=== PATIENT | female | born 1960 | race Asian ===

== ENCOUNTER → 2018-02-04 | Outpatient (CLI) | payer OTHER | END | disposition home or self-care (01) | LOC: RAD 16:06 | PROVIDERS: ATTEND Registered Nurse | DX: G93.89 Other specified disorders of brain (principal); R90.82 White matter disease, unspecified; G93.6 Cerebral edema; I63.9 Cerebral infarction, unspecified | CPT/HCPCS: 70450 ==

== ENCOUNTER 2018-02-25 09:06 | Day surgery (SDC) | payer OTHER ==
[~2018-02-25] VITALS: Ht 149.9 cm; Wt 45.5 kg
[2018-02-25 09:28] VITALS: BP 160/108
[2018-02-25] MEDS ORDERED: LIDOCAINE/PF 1%, 30ML ONE (09:45)
== END 2018-02-25 10:40 | disposition home or self-care (01) ==
LOC: CACL 09:06
PROVIDERS: ATTEND Internal Medicine Cardiovascular Disease
DX: I63.9 Cerebral infarction, unspecified (principal); I10 Essential (primary) hypertension; E78.5 Hyperlipidemia, unspecified; F15.90 Other stimulant use, unspecified, uncomplicated; J45.909 Unspecified asthma, uncomplicated; Z79.82 Long term (current) use of aspirin; Z79.899 Other long term (current) drug therapy; Z88.1 Allergy status to other antibiotic agents; Z88.0 Allergy status to penicillin; Z88.8 Allergy status to other drugs, medicaments and biological substances; Z90.710 Acquired absence of both cervix and uterus; Z90.49 Acquired absence of other specified parts of digestive tract; Z98.890 Other specified postprocedural states
CPT/HCPCS: 33282; C1764; J3490

== ENCOUNTER 2019-05-12 10:27 | Day surgery (SDC) | payer OTHER ==
[2019-05-12] MEDS ORDERED: SODIUM CHLORIDE 0.9% 1,000 ML IV SCH (11:47)
[2019-05-12] MEDS ORDERED: LIDOCAINE 2%, 20ML ONE (11:57)
== END 2019-05-12 13:08 | disposition home or self-care (01) ==
LOC: CACL 10:27
PROVIDERS: ATTEND Internal Medicine Cardiovascular Disease
DX: Z45.09 Encounter for adjustment and management of other cardiac device (principal); I10 Essential (primary) hypertension; G40.909 Epilepsy, unspecified, not intractable, without status epilepticus; Z79.82 Long term (current) use of aspirin; Z79.899 Other long term (current) drug therapy; Z88.0 Allergy status to penicillin; Z88.8 Allergy status to other drugs, medicaments and biological substances; Z86.73 Personal history of transient ischemic attack (TIA), and cerebral infarction without residual deficits
CPT/HCPCS: 33286

== ENCOUNTER 2019-06-23 12:40 | Outpatient (CLI) | payer OTHER | END 2019-06-23 23:59 | disposition home or self-care (01) | LOC: CARD 12:40 | PROVIDERS: ATTEND Registered Nurse | DX: G43.909 Migraine, unspecified, not intractable, without status migrainosus (principal) | CPT/HCPCS: 95819 ==

== ENCOUNTER → 2020-12-09 | Outpatient (CLI) | payer OTHER | END | disposition home or self-care (01) | LOC: RAD 15:33 | PROVIDERS: ATTEND Registered Nurse | DX: M50.10 Cervical disc disorder with radiculopathy, unspecified cervical region (principal); M48.02 Spinal stenosis, cervical region | CPT/HCPCS: 72050 ==